=== PATIENT | female | born 1930 | race Caucasian/White ===

== ENCOUNTER 2017-09-15 08:10 | Emergency (ER) | payer OTHER ==
[~2017-09-15] VITALS: Ht 147.3 cm; Wt 60.2 kg
[~2017-09-15 08:10] MED LIST: Aldactone PO; Aspirin Chewable PO; Coreg PO; Hydrodiuril,Oretic,E PO; Motrin PO; Norvasc PO; Ocean Nasal 0.65% BOTH NARES; Percocet 5/325,Endoc PO; Theragran PO
[2017-09-15 10:09] VITALS: BP 120/51
== END 2017-09-15 10:10 | disposition home or self-care (01) ==
LOC: EME 08:10
DX: K59.00 Constipation, unspecified (principal); I10 Essential (primary) hypertension; Z85.3 Personal history of malignant neoplasm of breast; Z95.0 Presence of cardiac pacemaker; Z79.82 Long term (current) use of aspirin; Z88.0 Allergy status to penicillin
CPT/HCPCS: 74020; 99281; 99284

== ENCOUNTER 2018-06-03 17:21 | Inpatient (IN) | payer OTHER ==
[~2018-06-03] VITALS: Ht 147.3 cm; Wt 57.0 kg
[2018-06-03 17:44] LABS: HEMATOCRIT 40.4 % (36.0-46.0); HEMOGLOBIN 13.8 G/DL (11.9-15.5); MCH 31.4 PG (29.0-34.0); MCHC 34.2 G/DL (30.0-36.0); PLATELET COUNT 230 K/uL (156-360); RBC DIS.WIDTH-CV 13.1 % (11.8-14.6); RBC DIS.WIDTH-SD 44.6 % (39-53); RED BLOOD COUNT 4.39 M/uL (3.80-5.20); WHITE BLOOD COUNT 12.9 K/uL (4.1-10.2)
[2018-06-03 17:58] LABS: CHLORIDE 97 mEq/L (99-109); POTASSIUM 4.3 mEq/L (3.7-5.4); SODIUM 134 mEq/L (136-147)
[2018-06-03 17:59] LABS: GLUCOSE 169 mg/dL (70-99)
[2018-06-03 18:03] LABS: CREATININE 0.8 mg/dL (0.6-1.3); GFR ESTIMATE (CALCULATED) > 59 mL/min/
[2018-06-03 18:04] LABS: UREA NITROGEN (BUN) 21 mg/dL (9-23)
[2018-06-03 19:59] LABS: APPEARANCE CLOUDY ((CLEAR)); BILIRUBIN NEGATIVE; BLOOD SMALL; COLOR YELLOW ((YELLOW)); GLUCOSE (STRIP) NEGATIVE; KETONES NEGATIVE; LEUKOCYTES LARGE; NITRITE POSITIVE; PROTEIN (STRIP) 100; SPECIFIC GRAVITY 1.015 (1.000-1.030); UROBILINOGEN 0.2 MG/DL (0.2-1.0)
[2018-06-03 20:00] LABS: ALBUMIN 4.1 g/dL (3.2-4.8)
[2018-06-03 20:03] LABS: TOTAL PROTEIN 7.1 g/dL (6.4-8.3)
[2018-06-03 20:05] LABS: TOTAL BILIRUBIN 0.9 mg/dL (0.0-1.0)
[2018-06-03 20:06] LABS: ALKALINE PHOSPHATASE 81 IU/L (3-129)
[2018-06-03 20:08] LABS: AST (GOT) 17 IU/L (2-34)
[2018-06-03 20:09] LABS: ALT (GPT) 12 IU/L (3-49); DIRECT BILIRUBIN 0.4 mg/dL (0.0-0.3)
[2018-06-03 20:10] LABS: LIPASE 39 U/L (1.0-51.0)
[2018-06-03 20:15] LABS: EPITHELIAL CELLS 2+ /HPF; RED BLOOD CELLS 0-5 /HPF (0-5); WHITE BLOOD CELLS 20-30 /HPF (0-5)
[2018-06-03 20:16] LABS: BACTERIA 4+ /HPF; MUCUS 1+ /LPF
[2018-06-04 00:15] LABS: TROP-I INTERPRETATION NEGATIVE; TROPONIN-I 0.01 ng/mL (0.0-0.30)
[2018-06-04] MEDS ORDERED: LEVOTHYROXINE50 MCG PO (00:29)
[2018-06-04] MEDS ORDERED: HYDROCHLOROTHIA25 MG PO (00:30)
[2018-06-04] MEDS ORDERED: SPIRONOLACTONE25 MG PO (00:30)
[2018-06-04] MEDS ORDERED: CARVEDILOL25 MG PO (00:31)
[2018-06-04] MEDS ORDERED: AMLODIPINE BES2.5 MG PO (00:31)
[2018-06-04] MEDS ORDERED: ATORVASTATIN CA20 MG PO (00:32)
[2018-06-04] MEDS ORDERED: MONTELUKAST SOD10 MG PO (00:33)
[2018-06-04] MEDS ORDERED: METFORMIN HCL500 M1 PO (00:36)
[2018-06-04] MEDS ORDERED: CHILD ASPIRIN81 M1 PO (00:37)
[2018-06-04] MEDS ORDERED: MULTIPLE VITAM1 EAC1 PO (00:41)
[2018-06-04 01:23] VITALS: BP 125/60
[2018-06-04 04:35] VITALS: BP 124/60
[2018-06-04 06:27] LABS: HEMATOCRIT 37.4 % (36.0-46.0); HEMOGLOBIN 12.2 G/DL (11.9-15.5); MCH 30.2 PG (29.0-34.0); MCHC 32.6 G/DL (30.0-36.0); MCV 92.6 FL (83-99); PLATELET COUNT 210 K/uL (156-360); RBC DIS.WIDTH-CV 13.2 % (11.8-14.6); RBC DIS.WIDTH-SD 44.5 % (39-53); RED BLOOD COUNT 4.04 M/uL (3.80-5.20); WHITE BLOOD COUNT 14.1 K/uL (4.1-10.2)
[2018-06-04 06:45] LABS: CHLORIDE 101 MEQ/L (99-109); CREATININE 0.6 MG/DL (0.6-1.3); GFR ESTIMATE (CALCULATED) > 59 mL/min/; POTASSIUM 3.7 MEQ/L (3.7-5.4); SODIUM 140 MEQ/L (136-147); UREA NITROGEN (BUN) 18 mg/dL (9-23)
[2018-06-04 07:01] LABS: GLUCOSE 103 mg/dL (70-99)
[2018-06-04 08:10] VITALS: BP 120/60
[2018-06-04 12:19] VITALS: BP 110/56
[2018-06-04 20:55] VITALS: BP 139/65
[2018-06-05 00:48] VITALS: BP 139/65
[2018-06-05 04:35] VITALS: BP 133/59
[2018-06-05 07:27] LABS: BASOPHIL (%) 0.4 % (0-1); BASOPHIL COUNT 0.1 K/uL (0-0.1); EOSINOPHIL (%) 1.5 % (0-5); EOSINOPHIL COUNT 0.2 K/uL (0-0.3); HEMATOCRIT 37.8 % (36.0-46.0); HEMOGLOBIN 12.6 G/DL (11.9-15.5); IMMATURE GRANULOCYTE (%) 0.5 % (0.0-0.7); LYMPHOCYTE COUNT 1.4 K/uL (1.0-2.8); MCHC 33.3 G/DL (30.0-36.0); MCV 93.1 FL (83-99); MONOCYTE COUNT 1.7 K/uL (0-0.8); NEUTROPHIL (%) 70.6 % (45-76); PLATELET COUNT 191 K/uL (156-360); RBC DIS.WIDTH-CV 13.2 % (11.8-14.6); RBC DIS.WIDTH-SD 45.4 % (39-53); RED BLOOD COUNT 4.06 M/uL (3.80-5.20); WHITE BLOOD COUNT 11.4 K/uL (4.1-10.2)
[2018-06-05 07:43] LABS: CHLORIDE 103 MEQ/L (99-109); CREATININE 0.7 MG/DL (0.6-1.3); GFR ESTIMATE (CALCULATED) > 59 mL/min/; GLUCOSE 135 mg/dL (70-99); POTASSIUM 4.1 MEQ/L (3.7-5.4); SODIUM 139 MEQ/L (136-147); UREA NITROGEN (BUN) 17 mg/dL (9-23)
[2018-06-05 08:43] VITALS: BP 130/63
[2018-06-05 15:41] VITALS: BP 133/92
[2018-06-06 00:40] VITALS: BP 136/65
[2018-06-06 08:16] VITALS: BP 113/54
[2018-06-06] MEDS ORDERED: CEFDINIR300 MG PO (13:59)
== END 2018-06-06 16:01 | disposition home or self-care (01) | DRG 872 ==
LOC: EME 17:21 → 3EAST 23:42 → EDOF 23:42 → CANRESERV 23:43 → ENRESERV 23:43 → 3EAST 06-04 01:06
PROVIDERS: Emergency Medicine; Hospitalist; Student in an Organized Health Care Education/Training Program
DX: A41.51 Sepsis due to Escherichia coli [E. coli] (principal); N39.0 Urinary tract infection, site not specified; J20.9 Acute bronchitis, unspecified; E87.1 Hypo-osmolality and hyponatremia; E11.65 Type 2 diabetes mellitus with hyperglycemia; I11.0 Hypertensive heart disease with heart failure; I50.9 Heart failure, unspecified; I48.91 Unspecified atrial fibrillation; Z85.3 Personal history of malignant neoplasm of breast; Z95.0 Presence of cardiac pacemaker; Z95.810 Presence of automatic (implantable) cardiac defibrillator; Z79.82 Long term (current) use of aspirin; Z88.0 Allergy status to penicillin
CPT/HCPCS: 71046; 74176; 80048; 80076; 81003; 82948; 83605; 83690; 83880; 84484; 85025; 85027; 85379; 87040; 87077; 87086; 87186; 87801; 93005; 94799; 99281; 99285; J0692; J0696; J1644; J1956